=== PATIENT | female | born 1970 | race Hispanic/Latino ===

== ENCOUNTER 2018-06-06 09:32 | Outpatient (CLI) | payer BC | END 2018-06-06 09:33 | disposition home or self-care (01) | LOC: BICMAMMO 09:32 | PROVIDERS: ATTEND Family Medicine | DX: Z12.31 Encounter for screening mammogram for malignant neoplasm of breast (principal) | CPT/HCPCS: 77063; 77067 ==

== ENCOUNTER 2019-01-10 19:01 | Emergency (ER) | payer BC | END 2019-01-10 21:40 | disposition home or self-care (01) | LOC: ERS 19:01 | DX: J30.9 Allergic rhinitis, unspecified (principal); E78.5 Hyperlipidemia, unspecified; I10 Essential (primary) hypertension; E03.9 Hypothyroidism, unspecified; K21.9 Gastro-esophageal reflux disease without esophagitis | CPT/HCPCS: 87804; 99283 ==

== ENCOUNTER 2019-06-09 09:53 | Outpatient (CLI) | payer BC ==
--- NOTE | 2019-06-09 10:34 | MMO ---
Bilateral MAMMO Bilat Screen [facility]. CLINICAL HISTORY: Patient is 49 years old and is seen for screening. The patient has no family history of breast cancer. The patient has no personal history of cancer. VIEWS: The views performed were: bilateral craniocaudal with tomosynthesis and bilateral mediolateral oblique with tomosynthesis. FILMS COMPARED: The present examination has been compared to prior imaging studies performed at [facility] on 06/15/2011, 11/08/2012, 05/28/2017 and 06/06/2018. MAMMOGRAM FINDINGS: There are scattered fibroglandular densities. There are no suspicious masses, suspicious calcifications, or new areas of architectural distortion. IMPRESSION: THERE IS NO MAMMOGRAPHIC EVIDENCE OF MALIGNANCY. A ROUTINE FOLLOW-UP MAMMOGRAM IN 1 YEAR IS RECOMMENDED. THE RESULTS OF THIS EXAM WERE SENT TO THE PATIENT. ACR BI-RADS Category 1 - Negative MAMMOGRAPHY NOTE: 1. A negative mammogram report should not delay a biopsy if a dominant of clinically suspicious mass is present. 2. Approximately 10% to 15% of breast cancers are not detected by mammography. 3. Adenosis and dense breasts may obscure an underlying neoplasm. Reported by: MAKAYLA CALIXTO MD Electonically Signed: [id number]
== END 2019-06-09 09:54 | disposition home or self-care (01) ==
LOC: BICMAMMO 09:53
PROVIDERS: ATTEND Family Medicine
DX: Z12.31 Encounter for screening mammogram for malignant neoplasm of breast (principal)
CPT/HCPCS: 77063; 77067

== ENCOUNTER 2020-06-10 08:04 | Outpatient (CLI) | payer BC ==
--- NOTE | 2020-06-10 09:12 | MMO ---
Bilateral MAMMO Bilat Screen [facility]. CLINICAL HISTORY: Patient is 50 years old and is seen for screening. The patient has no family history of breast cancer. The patient has no personal history of cancer. VIEWS: The views performed were: bilateral craniocaudal with tomosynthesis and bilateral mediolateral oblique with tomosynthesis. FILMS COMPARED: The present examination has been compared to prior imaging studies performed at [facility] on 11/08/2012, 05/28/2017, 06/06/2018 and 06/09/2019. This study has been interpreted with the assistance of computer-aided detection. MAMMOGRAM FINDINGS: The breasts are almost entirely fat. There are no suspicious masses, suspicious calcifications, or new areas of architectural distortion. IMPRESSION: THERE IS NO MAMMOGRAPHIC EVIDENCE OF MALIGNANCY. A ROUTINE FOLLOW-UP MAMMOGRAM IN 1 YEAR IS RECOMMENDED. THE RESULTS OF THIS EXAM WERE SENT TO THE PATIENT. ACR BI-RADS Category 1 - Negative MAMMOGRAPHY NOTE: 1. A negative mammogram report should not delay a biopsy if a dominant of clinically suspicious mass is present. 2. Approximately 10% to 15% of breast cancers are not detected by mammography. 3. Adenosis and dense breasts may obscure an underlying neoplasm. Reported by: LUPE BERNAL MD Electonically Signed: [id number]
== END 2020-06-10 08:05 | disposition home or self-care (01) ==
LOC: BICMAMMO 08:04
PROVIDERS: ATTEND Nurse Practitioner Family
DX: Z12.31 Encounter for screening mammogram for malignant neoplasm of breast (principal)
CPT/HCPCS: 77063; 77067

== ENCOUNTER 2020-12-10 13:35 | Observation (INO) | payer BC ==
[2020-12-10 13:58] LABS: #Basophils 0.1 thou/uL (0.0-0.2); #Eosinphils 0.2 thou/uL (0.0-0.7); #Lymphocytes 3.3 thou/uL (1.20-3.40); #Monocytes 0.6 thou/uL (0.11-0.59); #Neutrophils 6.2 thou/uL (1.40-6.50); %Basophils 0.9 % (0.0-1.0); %Eosinophils 2.3 % (0.0-10.0); %Lymphocytes 31.7 % (21.0-51.0); %Monocytes 5.8 % (0.0-10.0); %Neutrophils 59.4 % (42.0-75.0); Hemoglobin 11.9 g/dL (12.0-16.0); Mean Corpuscular HGB CONC 32.7 g/dL (32.0-36.0); Mean Corpuscular Hemoglobin 28.1 pg (27.0-31.0); Mean Corpuscular Volume 85.8 fL (78.0-98.0); Mean Platelet Volume 7.4 fL (7.4-10.4); Platelet Count 333 thou/uL (130-400); RBC Distribution Width 12.7 % (11.5-14.5); Red Blood Cell (RBC) Count 4.25 mill/uL (4.20-5.40); White Blood Cell (WBC) Count 10.5 thou/uL (4.8-10.8)
[2020-12-10 14:21] LABS: ALT (SGPT) 17 U/L (8-55); AST (SGOT) 14 U/L (5-34); Alkaline Phosphatase 182 U/L (40-110); Anion Gap 14 mmol/L (10-20); BUN (Urea Nitrogen) 11 mg/dL (9.8-20.1); Bilirubin, Total 0.3 mg/dL (0.2-1.2); CK (CPK) 51 U/L (29-168); Calc. Creatinine Clearance 0 mL/min (70-130); Calcium 8.7 mg/dL (7.8-10.44); Carbon Dioxide 28 mmol/L (22-29); Chloride 105 mmol/L (98-107); Globulin 2.9 g/dL (2.4-3.5); Glucose 153 mg/dL (70-105); Protein, Total 6.9 g/dL (6.0-8.3); Sodium 143 mmol/L (136-145)
--- NOTE | 2020-12-10 14:22 | RAD ---
EXAM: CHEST ONE VIEW HISTORY: Chest pain. COMPARISON: 06/21/2015 FINDINGS: The cardiac silhouette and pulmonary vasculature are within normal limits. The lungs are clear. The o sseous structures are intact. No interval change from prior study. IMPRESSION: No acute cardiopulmonary process.
--- NOTE | 2020-12-10 16:52 | CT ---
Head CT without contrast 12/10/2020: Comparison: None HISTORY: Left-sided facial tingling and numbness TECHNIQUE: Axial CT imaging at 5 mm intervals from vertex through skull base without contrast FINDINGS: The imaged paranasal sinuses and mastoid air cells are well-aerated. No displaced calvarial fracture, intracranial hemorrhage, midline shift, or mass effect. IMPRESSION: No acute findings.
[2020-12-10 18:23] LABS: Troponin I Less than 0.010 ng/mL (< 0.028)
[2020-12-10] MEDS ORDERED: Acetaminophen 325 MG TAB PO PRN (19:20)
[2020-12-10] MEDS ORDERED: Senokot S 8.6-50 MG TAB PO PRN (19:20)
[2020-12-10] MEDS ORDERED: Dextrose 5% in Water 1,000 ML IV PRN (19:21)
[2020-12-10] MEDS ORDERED: Dextrose 50% Abboject 50 ML SYRINGE SLOW IVP PRN (19:21)
[2020-12-10] MEDS ORDERED: HumaLOG 300 UNITS/3 ML VIAL SC PRN ×2 (19:21)
[2020-12-10] MEDS ORDERED: Melatonin 3 MG TAB PO PRN (19:22)
--- NOTE | 2020-12-10 20:36 | HP ---
PRIMARY CARE PHYSICIAN: Jamila Rainey. CHIEF COMPLAINT: Chest pain. HISTORY OF PRESENT ILLNESS: Ms. Cervantes is a 50-year-old female who reported to the emergency room today for evaluation of intermittent chest pain since this time last night. 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 She reports that she takes lisinopril low dose and the renal protective more than blood pressure. She reports that she is under more stress at work. Reports that she feels like she is always having to sit down and do more. She does report a history of migraine headaches. She does report that with this chest pain she had some numbness, tingling to the left side of her face, which is mostly resolved at this point. She denied any fever, cough, chills, syncope. Denied any chest pain on exertion, primarily states that this kind of chest pain in her left side of her chest and denies any radiation. She denies any diaphoresis or nausea and she denies having this pain in the past. She does have family history of cardiac disease. She has a past medical history pertinent for hypertension, hyperlipidemia, hypothyroidism, GERD, diabetes type 2. She reports that she was on blood pressure medication at some point in the past, lost several pounds, came off that medication and has regained some of that weight. She also reports that she had EGD done a month ago for some GERD symptoms and to have her hiatal hernia checked. She reports that EGD was okay and that she had a small hiatal hernia that they were going to watch. She reports that most of her symptoms have resolved except that she does feels unwell but nothing specific. EKG showed some sinus depression in V2, V3. Troponin x2 has been negative. She is going to be admitted for ACS rule out. REVIEW OF SYSTEMS: Reports chest pain. Denies shortness of breath. Denies fever, chills. Does report palpitations. Reports numbness, tingling to the left side of her face. Denies any numbness, tingling on the extremities. Denies any weakness on extremities. Denies any change in gait. All systems are reviewed and negative unless mentioned in the HPI or above. PAST MEDICAL HISTORY: Hyperlipidemia, hypertension, diabetes type 2, hypothyroidism, GERD. PAST SURGICAL HISTORY: EGD a month ago, sinus surgery in 2011, section x1. SOCIAL HISTORY: Lives at home with her family. Denies any alcohol, drug use. No smoking history next. KNOWN ALLERGIES: None. CURRENT MEDICATIONS: 1. Metformin 500 mg p.o. b.i.d. 2. Atorvastatin 10 mg p.o. once a day. 3. Lisinopril 2.5 mg p.o. once a day. 4. Prilosec 40 mg p.o. once a day. PHYSICAL EXAMINATION: VITAL SIGNS: Blood pressure 102/68, pulse is 70, respiratory rate is 16, saturating 99% on room air, temperature is 97.2. CONSTITUTIONAL: The patient is alert and oriented per to person, place and time. HEENT: Head is atraumatic and normocephalic. Eyes, pupils are equally round and reactive to light. Extraocular muscles are intact. ENT, mouth exam is normal. Mucous membranes are moist. NECK: Normal range of motion. Trachea is midline. RESPIRATORY: Chest expansion is equal. Breath sounds are clear. CARDIOVASCULAR: Regular rate and rhythm. Heart sounds are normal. ABDOMEN: No distention. Bowel sounds are heard. BACK: Normal range of motion. No tenderness. Upper extremity, normal range of motion. Motor strength is normal. Radial pulses are normal. Sensation is intact. Lower extremity, normal range of motion. Motor strength is normal. Pedal pulses are intact. NEURO: The patient is oriented to person, place and time. Speech is normal. Cranial nerves 2 through 12 are grossly intact. IMAGING DATA: EKG in the emergency room shows normal sinus with beats per minute 75 with borderline left axis deviation, T-wave inversions in V1 to V3, no ST elevation or depression. Radiology, she did have a head CT because of the numbness and weakness, which was negative for any acute findings. ASSESSMENT: 1. Chest pain. We have ordered a serial troponins. Ordered a stress test in the morning. We will check her lipids and TSH in the morning as well. Put her on our equipment monitor phototypesetting. 2. History of diabetes type 2. Add before meals and at bedtime Accu-Cheks and sliding scale as needed for coverage. Can start her back on her medication after her tests. 3. History of hypertension, although she is on lisinopril mostly, she has had for renal protective properties. She is on lisinopril 2.5. We will restart that. 4. Hyperlipidemia. We will restart her atorvastatin when her medications are reconciled. 5. History of migraine headaches. This appears stable. 6. Per ER record, she has a history of hypothyroidism, although she is not on any medications and she denied this to us. We will check a TSH. 7. Deep venous thrombosis and PUD prevention started. 8. Case discussed with Dr. Cavazos who agrees with plan. Job ID: [id number]
[2020-12-10 21:19] LABS: Troponin I Less than 0.010 ng/mL (< 0.028)
[2020-12-10] MEDS ORDERED: Acetaminophen 325 MG TAB ONE ×2 (22:38→22:39)
[2020-12-11 04:20] LABS: #Eosinphils 0.3 thou/uL (0.0-0.7); #Lymphocytes 4.1 thou/uL (1.20-3.40); #Monocytes 0.6 thou/uL (0.11-0.59); #Neutrophils 5.1 thou/uL (1.40-6.50); %Basophils 0.4 % (0.0-1.0); %Eosinophils 3.2 % (0.0-10.0); %Monocytes 6.2 % (0.0-10.0); %Neutrophils 50.1 % (42.0-75.0); Hemoglobin 11.8 g/dL (12.0-16.0); Mean Corpuscular HGB CONC 32.5 g/dL (32.0-36.0); Mean Corpuscular Volume 86.1 fL (78.0-98.0); Mean Platelet Volume 7.5 fL (7.4-10.4); Platelet Count 313 thou/uL (130-400); RBC Distribution Width 12.6 % (11.5-14.5); Red Blood Cell (RBC) Count 4.23 mill/uL (4.20-5.40); White Blood Cell (WBC) Count 10.2 thou/uL (4.8-10.8)
[2020-12-11 04:41] LABS: Anion Gap 14 mmol/L (10-20); BUN (Urea Nitrogen) 12 mg/dL (9.8-20.1); Calc. Creatinine Clearance 0 mL/min (70-130); Calcium 8.8 mg/dL (7.8-10.44); Carbon Dioxide 25 mmol/L (22-29); Cardiac Risk 2.9 (Less than 4.5); Chloride 107 mmol/L (98-107); Cholesterol 148 mg/dl (< 200 Desired); Glucose 138 mg/dL (70-105); HDL Cholesterol 51 mg/dL (>60 Neg Risk); LDL Cholesterol, Calculated 82 mg/dL; Potassium 3.8 mmol/L (3.5-5.1); Sodium 142 mmol/L (136-145); Triglycerides 77 mg/dL (Less than 150)
[2020-12-11 06:42] VITALS: BMI 35.1
[2020-12-11] MEDS ORDERED: Enoxaparin Sodium 40 MG/0.4 ML SYRINGE SC SCH (09:00)
[2020-12-11] MEDS ORDERED: ADENOSINE 60 MG/20 ML VIAL ONE (09:59)
--- NOTE | 2020-12-11 14:40 | NM ---
Nuclear medicine Cardiac myocardial perfusion SPECT Ejection fraction study Wall motion cine: DATE:12/11/2020 10:00 AM INDICATION: Chest pain TECHNIQUE: Number of days:2 Rest Study: Technetium 99m-sestamibi (Cardiolite) dose:9.5 mCi Stress study: Technetium 99m-sestamibi (Cardiolite) dose:30.10 mCi FINDINGS: Cardiac (myocardial perfusion) SPECT There are no reversible myocardial perfusion defects. Ejection fraction study Left ventricular EF = 71% Wall motion cine Normal wall motion and thickening. IMPRESSION: No evidence of reversible myocardial ischemia.
--- NOTE | 2020-12-11 15:57 | PDOC.DS.DS ---
Provider Date of Admission: 12/10/20 17:28 Admitting Provider: Elaine Cavazos MD Primary Care Physician: Unknown Course Hospital Course: 50-year-old female admitted for chest pain. She is ruled out for acute coronary syndrome troponin x2 -. TSH 2.4 her LDL 82. She takes Lipitor at home. Nuclear stress test negative. Patient is stable to be discharged home today. Follow-up with the PCP as needed. Discharge time over 30 minutes. Lab Results: 12/11/20 04:04 12/11/20 04:04 Abnormal Lab Results - Last 48 hrs 12/10/20 13:51: Alkaline Phosphatase 182 H 12/10/20 13:51: Hgb 11.9 L, Monocytes # 0.6 H 12/11/20 04:04: Creatinine 0.59 L 12/11/20 04:04: Hgb 11.8 L, Lymphocytes # 4.1 H, Monocytes # 0.6 H Vitals: Weight Weight 174 lb Physical Exam: The patient was seen and examined on the day of discharge. Plan Home Medications: Medication Instructions Recorded Confirmed Type Ascorbic Acid/Collagen Hydr 1 cap PO ASDIR 12/11/20 12/11/20 History [Collagen Plus Vitamin C] Atorvastatin Calcium 10 mg PO HS 12/11/20 12/11/20 History Cholecalciferol (Vitamin D3) 1,000 units PO ASDIR 12/11/20 12/11/20 History [Vitamin D] Fexofenadine HCl [[place] Allergy] 60 mg PO 12/11/20 History Fish Oil 1 tab PO ASDIR 12/11/20 12/11/20 History Fluticasone Propionate [Flonase 1 spray EA NARE DAILY 12/11/20 12/11/20 History Nasal [place]] Lisinopril 2.5 mg PO HS 12/11/20 12/11/20 History Omeprazole Magnesium [Prilosec] 40 mg PO BID 12/11/20 12/11/20 History metFORMIN [Glucophage] 1,000 mg PO BID-WM 12/11/20 12/11/20 History Allergies: moxifloxacin [From Avelox] Allergy (Verified 12/11/20 06:39) Rash Activity:: Activity as Tolerated Nourishment:: Heart Healthy Diet Referrals: Unknown,Unknown [Primary Care Provider] - Disposition: HOME Quality CORE MEASURES:: N/A
== END 2020-12-11 19:19 | disposition home or self-care (01) ==
LOC: ERS 13:35 → ERHOLD 17:20
PROVIDERS: ADMIT Internal Medicine; ATTEND Internal Medicine
DX: R07.9 Chest pain, unspecified (principal); R20.0 Anesthesia of skin; I10 Essential (primary) hypertension; E78.5 Hyperlipidemia, unspecified; E03.9 Hypothyroidism, unspecified; E11.9 Type 2 diabetes mellitus without complications; K21.9 Gastro-esophageal reflux disease without esophagitis; K44.9 Diaphragmatic hernia without obstruction or gangrene; G43.909 Migraine, unspecified, not intractable, without status migrainosus; Z79.51 Long term (current) use of inhaled steroids; Z79.84 Long term (current) use of oral hypoglycemic drugs; Z79.899 Other long term (current) drug therapy; Z88.1 Allergy status to other antibiotic agents
CPT/HCPCS: 36415; 36416; 70450; 71045; 78452; 80048; 80053; 80061; 82550; 84443; 84484; 85025; 93005; 93017; A9500; J0153

== ENCOUNTER 2021-10-03 15:58 | Outpatient (CLI) | payer BC | END 2021-10-03 15:59 | disposition home or self-care (01) | LOC: BICMAMMO 15:58 | PROVIDERS: ATTEND Nurse Practitioner Family | DX: Z12.31 Encounter for screening mammogram for malignant neoplasm of breast (principal); R92.1 Mammographic calcification found on diagnostic imaging of breast | CPT/HCPCS: 77063; 77067 ==

== ENCOUNTER 2021-10-11 07:50 | Outpatient (CLI) | payer BC | END 2021-10-11 07:51 | disposition home or self-care (01) | LOC: BICMAMMO 07:50 | PROVIDERS: ATTEND Nurse Practitioner Family | DX: R92.1 Mammographic calcification found on diagnostic imaging of breast (principal) | CPT/HCPCS: G0279 ==

== ENCOUNTER 2022-04-05 13:17 | Outpatient (CLI) | payer BC | END 2022-04-05 13:18 | disposition home or self-care (01) | LOC: BICMAMMO 13:17 | PROVIDERS: ATTEND Nurse Practitioner Family | DX: R92.8 Other abnormal and inconclusive findings on diagnostic imaging of breast (principal) | CPT/HCPCS: G0279 ==

== ENCOUNTER 2023-10-03 08:27 | Outpatient (CLI) | payer BC | END 2023-10-03 08:28 | disposition home or self-care (01) | LOC: BICMAMMO 08:27 | PROVIDERS: ATTEND Nurse Practitioner Family | DX: Z12.31 Encounter for screening mammogram for malignant neoplasm of breast (principal) | CPT/HCPCS: 77063; 77067 ==

== ENCOUNTER 2024-04-25 14:21 | Outpatient (CLI) | payer BC ==
[2024-04-25 16:01] LABS: ALT (SGPT) 14 U/L (8-55); AST (SGOT) 14 U/L (5-34); Albumin 3.6 g/dL (3.5-5.0); Alkaline Phosphatase 131 U/L (40-110); Anion Gap 13 mmol/L (10-20); BUN (Urea Nitrogen) 15 mg/dL (9.8-20.1); Bilirubin, Total 0.2 mg/dL (0.2-1.2); Calc. Creatinine Clearance 0 mL/min (70-130); Calcium 9.2 mg/dL (7.8-10.44); Carbon Dioxide 24 mmol/L (22-29); Chloride 110 mmol/L (98-107); Estimated GFR 104; Globulin 3.2 g/dL (2.4-3.5); Glucose 104 mg/dL (70-105); Potassium 3.9 mmol/L (3.5-5.1); Protein, Total 6.8 g/dL (6.0-8.3); Sodium 143 mmol/L (136-145)
== END 2024-04-25 14:22 | disposition home or self-care (01) ==
LOC: LABBT 14:21
PROVIDERS: ATTEND Surgery
DX: Z01.818 Encounter for other preprocedural examination (principal); K43.9 Ventral hernia without obstruction or gangrene
CPT/HCPCS: 80053; 93005; 93010

== ENCOUNTER 2024-05-16 10:13 | Emergency (ER) | payer BC ==
[2024-05-16 10:58] LABS: #Basophils 0.03 10x3/uL (0.0-0.2); %Basophils 0.2 % (0.0-1.0); %Eosinophils 1.3 % (0.0-10.0); %Lymphocytes 21.9 % (21.0-51.0); %Monocytes 5.5 % (0.0-10.0); %Neutrophils 70.7 % (42.0-75.0); Hematocrit 42.8 % (36.0-47.0); Hemoglobin 14.1 g/dL (12.0-16.0); Mean Corpuscular HGB CONC 32.9 g/dL (32.0-36.0); Mean Corpuscular Hemoglobin 27.9 pg (27.0-31.0); Mean Corpuscular Volume 84.6 fL (78.0-98.0); Mean Platelet Volume 9.7 fL (7.4-10.4); Platelet Count 441 10x3/uL (130-400); RBC Distribution Width 14.4 % (11.5-14.5); Red Blood Cell (RBC) Count 5.06 mill/uL (4.20-5.40)
[2024-05-16] MEDS ORDERED: Morphine 4 MG/ML VIAL ONE (11:10)
[2024-05-16] MEDS ORDERED: Ondansetron PF 4 MG/2 ML Vial ONE (11:11)
[2024-05-16 11:30] LABS: ALT (SGPT) 16 U/L (8-55); AST (SGOT) 18 U/L (5-34); Albumin 4.1 g/dL (3.5-5.0); Alkaline Phosphatase 164 U/L (40-110); Anion Gap 14 mmol/L (10-20); BUN (Urea Nitrogen) 11 mg/dL (9.8-20.1); Bilirubin, Total 0.3 mg/dL (0.2-1.2); Calc. Creatinine Clearance 0 mL/min (70-130); Calcium 10.2 mg/dL (7.8-10.44); Carbon Dioxide 25 mmol/L (22-29); Chloride 105 mmol/L (98-107); Estimated GFR 104; Globulin 4.3 g/dL (2.4-3.5); Glucose 108 mg/dL (70-105); Potassium 4.2 mmol/L (3.5-5.1); Protein, Total 8.4 g/dL (6.0-8.3); Sodium 140 mmol/L (136-145)
[2024-05-16] MEDS ORDERED: Iopamidol-370 76% 500 ML MDV (1 ML CHARGE) ONE (11:55)
[2024-05-16 12:24] LABS: Bacteria/HPF None Seen HPF (None Seen); Bilirubin Negative (Negative); Blood, Urine Negative (Negative); CAUTI Indications for Culture Pelvic or flank pain; Calcium Oxalate Crystals 2+ HPF (None Seen); Clarity Clear (Clear); Glucose, Urine (Dipstick) Normal (Negative); Ketone, Urine Negative (Negative); Leukocyte Negative Leu/uL (Negative); Nitrite Negative (Negative); Protein, Urine (Dipstick) 20 mg/dL (Neg-Trace); RBC/HPF None Seen HPF (0-3); Specific Gravity, Urine 1.031 (1.002-1.036); Squamous Epithelial 0-3 HPF (0-3); Urobilinogen Normal mg/dL (Less than 2); WBC/HPF None Seen HPF (0-3); pH, Urine 5.5 (5.0-9.0)
[2024-05-16 12:28] LABS: Urine Culture Reflex No No
== END 2024-05-16 14:07 | disposition home or self-care (01) ==
LOC: ERS 10:13
DX: R10.33 Periumbilical pain (principal); R19.7 Diarrhea, unspecified; R11.0 Nausea; I10 Essential (primary) hypertension; E11.9 Type 2 diabetes mellitus without complications
CPT/HCPCS: 74177; 80053; 81001; 83690; 85025; 96374; 96375; J2270; J2405; Q9967

== ENCOUNTER 2025-06-04 13:22 | Outpatient (CLI) | payer BC | END 2025-06-04 13:23 | disposition home or self-care (01) | LOC: BICMAMMO 13:22 | PROVIDERS: ATTEND Family Medicine | DX: Z12.31 Encounter for screening mammogram for malignant neoplasm of breast (principal) | CPT/HCPCS: 77063; 77067 ==